=== PATIENT | female | born 1965 | race Caucasian/White ===

== ENCOUNTER 2020-09-08 08:16 | Outpatient (CLI) | payer BC, SELFPAY | END 2020-09-08 08:17 | disposition home or self-care (01) | LOC: ANHCOVIDVC 08:16 | PROVIDERS: PCP Internal Medicine | DX: Z23 Encounter for immunization (principal) | CPT/HCPCS: 0001A; 91300 ==

== ENCOUNTER 2020-09-29 08:14 | Outpatient (CLI) | payer BC, SELFPAY | END 2020-09-29 08:15 | disposition home or self-care (01) | LOC: ANHCOVIDVC 08:14 | PROVIDERS: PCP Internal Medicine | DX: Z23 Encounter for immunization (principal) | CPT/HCPCS: 0002A; 91300 ==